=== PATIENT | male | born 1990 | race Caucasian/White ===

== ENCOUNTER 2016-11-14 16:26 | Emergency (ER) | payer SELFPAY ==
[~2016-11-14] VITALS: Ht 177.8 cm; Wt 96.3 kg
[~2016-11-14 16:26] MED LIST: ANTIPYRINE-BENZ15 ML BOTH EARS; LIDOCAINE20 MG/1 M5 PO; NAPROSYN500 MG PO; PREDNISONE10 M1 PO; TESSALON PERLE100 MG PO; ULTRAM50 MG PO; ZITHROMAX250 MG PO; ZITHROMAX500 MG PO
[2016-11-14 18:08] LABS: HEMATOCRIT 44.1 % (38.0-50.0); MCH 30.5 PG (29.0-34.0); MCHC 34.5 G/DL (30.0-36.0); MCV 88.6 FL (86-99); MEAN PLAT.VOLUME 9.6 uM^3 (9.0-12.4); PLATELET COUNT 254 K/uL (156-360); RBC DIS.WIDTH-CV 12.7 % (11.8-14.6); RED BLOOD COUNT 4.98 M/uL (4.00-5.50); WHITE BLOOD COUNT 9.9 K/uL (4.1-10.2)
[2016-11-14 18:24] LABS: CHLORIDE 106 mEq/L (99-109); POTASSIUM 3.7 mEq/L (3.7-5.4); SODIUM 140 mEq/L (136-147)
[2016-11-14 18:26] LABS: D-DIMER ELISA 0.28 mg/L FEU (< 0.57); GLUCOSE 79 mg/dL (70-99)
[2016-11-14 18:27] LABS: ANION GAP 12 MEQ/L (2-14)
[2016-11-14 18:28] LABS: TOTAL BILIRUBIN 0.7 mg/dL (0.0-1.0)
[2016-11-14 18:29] LABS: ALKALINE PHOSPHATASE 73 IU/L (3-129)
[2016-11-14 18:30] LABS: GFR ESTIMATE (CALCULATED) > 59 mL/min/
[2016-11-14 18:31] LABS: UREA NITROGEN (BUN) 17 mg/dL (9-23)
[2016-11-14 18:38] LABS: TROP-I INTERPRETATION NEGATIVE; TROPONIN-I < 0.01 ng/mL (0.0-0.30)
[2016-11-14] MEDS ORDERED: ATIVAN1 MG PO (19:08)
[2016-11-14] MEDS ORDERED: MOTRIN800 MG PO (19:08)
[2016-11-14 20:05] VITALS: BP 118/79
== END 2016-11-14 20:06 | disposition home or self-care (01) ==
LOC: EME 16:26
PROVIDERS: Physician Assistant
DX: R07.89 Other chest pain (principal); F41.1 Generalized anxiety disorder
CPT/HCPCS: 71020; 80053; 84484; 85027; 85379; 93005; 99281; 99282